=== PATIENT | male | born 1950 | race Two or more races ===

== ENCOUNTER 2024-08-16 11:22 | Emergency (ER) | payer MEDICARE, MEDICAID, SELFPAY ==
[2024-08-16 11:23] VITALS: BMI 25.0
[2024-08-16 11:39] VITALS: BP 162/94; PULSE 101; RESP 12; TEMP 36.6; O2SAT 98
--- NOTE | 2024-08-16 11:44 | PD.EDALLER ---
ED Allergic Reaction RME/HPI General Chief complaint: Allergic Reaction Stated complaint: FACIAL SWELLING S/P NEW MEDS Time Seen by Provider: 08/16/24 11:32 Arrival date/time: 08/16/24 11:22 RME / HPI RME / HPI narrative: 73-year-old male patient with significant history of hypertension, was brought in by family for evaluation regarding swelling of the mouth. Patient woke up this morning as swelling of the mouth, lips, and feels like tongue is also swollen. Patient took his first dose of lisinopril last night. Patient denies any difficulty swallowing denies any shortness of breath denies any other complaints no medication was taken prior to arrival. Related Data Allergies Allergy/AdvReac Type Severity Reaction Status Date / Time lisinopril Allergy Severe Swelling Verified 08/16/24 11:26 of Lip/Tongue/Throat Review of Systems Review of Systems Narrative Review of Systems: Review of system reviewed and within normal limits except mentioned in HPI ED Exam Narrative Physical exam: VITAL SIGNS: Reviewed. GENERAL APPEARANCE: Alert and interactive, follows commands, no acute distress, HEAD AND FACE: Non-traumatic. ENT: PERRL, pink conjunctivitis, eyelid no trauma, Mucous membrane moist. Lips are not swollen, tongue is not swollen, no rashes no redness NECK: Supple, nontender, no nuchal rigidity. CHEST: No tenderness, no crepitus, no paradoxical movement, no retractions. LUNGS: Clear, well ventilated, symmetric, no rales, no wheezing, no ronchi, no stridor, good breath sounds bilaterally. HEART: Regular rate, regular rhythm, no murmur, no gallops. ABDOMEN: Soft, positive bowel sounds, nondistended, no guarding, nontender, no rebound, no masses, RECTAL: Deferred. GENITAL: Deferred. NEUROLOGICAL: Gross motor function intact sensory function intact, Appropriate for age. MUSCULOSKELETAL: low back nontender, full range of motion. EXTREMITIES: Nontender, full range of motion. SKIN: Color pink, dry, no rash, no lacerations, no abrasions, no contusions. LYMPHATICS: Deferred. Course Quality Measures none Orders Category Date Time Status Dexamethasone Inj [Decadron Inj] Med 08/16/24 11:42 Discontinued 10 mg IV X1 ONE DiphenhydrAMINE INJ [Benadryl Inj] Med 08/16/24 11:42 Discontinued 25 mg IVP X1 ONE EPINEPHrine Inj [Adrenalin Inj] Med 08/16/24 11:42 Discontinued 0.3 mg IM X1 ONE Famotidine Inj [Pepcid Inj] Med 08/16/24 11:42 Discontinued 20 mg IVP X1 ONE Sodium Chloride 0.9% 1000 ml [Ns] 1,000 ml Med 08/16/24 11:43 Discontinued IV 999 mls/hr Vital Signs Vital signs: Vital Signs Temperature 98 F 08/16/24 11:39 Pulse Rate 101 H 08/16/24 11:39 Respiratory Rate 12 08/16/24 11:39 Blood Pressure 162/94 H 08/16/24 11:39 Pulse Oximetry (%) 98 08/16/24 11:39 Oxygen Delivery Method Room Air 08/16/24 11:39 Allergic Reaction MDM Narrative MDM Narrative:: 73-year-old male patient with significant history of hypertension, was brought in by family for evaluation regarding swelling of the mouth. Patient woke up this morning as swelling of the mouth, lips, and feels like tongue is also swollen. Patient took his first dose of lisinopril last night. Patient denies any difficulty swallowing denies any shortness of breath denies any other complaints no medication was taken prior to arrival. Patient received IV fluids, Benadryl Pepcid epinephrine and Decadron. On reevaluation patient's symptoms is completely gone. Patient was advised to stop taking lisinopril and asked the PCP for new blood pressure medication. Patient appears nontoxic and hemodynamically stable. Patient discharged home and instructed to follow-up with primary care provider in 24 to 48 hours. Instructed to return to the emergency department immediately if worsening of symptoms Patient data External records reviewed:: None Clinical information provided by:: none Social determinants that could affect healthcare access:: none Patient has the following chronic illnesses:: Hypertension How is presenting disease/condition affected by chronic disease/condition?: exacerbated by Evaluation data The following diagnostics were reviewed and interpreted by me:: other (specify) (None) Lab and/or radiology exams considered but not ordered:: None Interpretation Summary: None Medications / Prescriptions Medications or Prescriptions considered but not ordered:: None Medication administrations:: Medication Administration History Discontinued Medications Dexamethasone Sodium Phosphate (Dexamethasone Sod Phos Inj 10 Mg/Ml Vial) 10 mg IV X1 ONE Stop: 08/16/24 11:43 Last Admin: 08/16/24 12:01 Dose: 10 mg Documented By: PEDRO PABLO Diphenhydramine HCl (Diphenhydramine Inj 50 Mg/Ml Vial) 25 mg IVP X1 ONE Stop: 08/16/24 11:43 Last Admin: 08/16/24 12:00 Dose: 25 mg Documented By: PEDRO PABLO Epinephrine HCl (Epinephrine Inj 1 Mg/Ml Amp) 0.3 mg IM X1 ONE Stop: 08/16/24 11:43 Last Admin: 08/16/24 11:57 Dose: 0.3 mg Documented By: PEDRO PABLO Famotidine (Famotidine Inj 10 Mg/Ml Vial 2 Ml) 20 mg IVP X1 ONE Stop: 08/16/24 11:43 Last Admin: 08/16/24 12:01 Dose: 20 mg Documented By: PEDRO PABLO Sodium Chloride (Ns) 1,000 mls @ 999 mls/hr IV .Q1H1M ONE Stop: 08/16/24 12:43 Last Infusion: 08/16/24 13:12 Dose: Infused Documented By: PEDRO PABLO Admin: 08/16/24 12:02 Dose: 999 mls/hr Documented By: PEDRO PABLO IV fluids Pepcid epinephrine Benadryl and Decadron Consultations Consultation(s) initiated? (list below): No Diagnosis Differential Diagnosis allergic reaction: allergic reaction and angioedema Most likely diagnosis given after review of the tests above:: Angioedema, drug allergic reaction Admission Indicated Admission indicated?: not indicated Explain why admission is indicated or not indicated:: Stable Admission Request Was there a request for admission?: No Disposition Plan Disposition Plan: Discharge Discharge Attestation Discharge Attestation: The patient and all family members were given an opportunity to ask questions and understood the discharge instructions. Discharge instructions specifically effects, indications for sooner follow up or return to the emergency department, and the expected course of current diagnosis. Patient condition: Stable Discharge Plan Plan Patient Disposition: HOME (Self Care) Discharge Disposition comment: Stable Prescriptions/Referrals Referrals: Amy Mandel PA-C [Primary Care Provider] - In 1 week Problem List Clinical Impression: Angioedema, Adverse reaction to drug Patient/Caregiver Discharge Instructions Discharge Activity: activity as tolerated Education Materials: ED Angioedema Additional Instructions: Thank you for the opportunity for serving you today. You are stable for discharged . You are advised to: Follow-up with your PCP in 1 to 2 days Return to ED for worsening of symptoms Increase oral fluids Please stop taking your lisinopril and call your PCP for your blood pressure issues. Print Language: Montenegrin Stand Alone Forms: Suzi Award Info., Patient Portal Info Letter PA/OFFICE MACHINE INSPECTOR Supervising Physician PA/OFFICE MACHINE INSPECTOR Supervising Physician: MD Preston
[2024-08-16 11:57] VITALS: BP 162/94; PULSE 90
[2024-08-16] MEDS: EPINEPHrine INJ 1 MG/ML AMP 0.3 MG IM (11:57)
[2024-08-16] MEDS: DiphenhydrAMINE INJ 50 MG/ML VIAL 25 MG IVP (12:00)
[2024-08-16] MEDS: FAMOTIDINE INJ 10 MG/ML VIAL 2 ML 20 MG IVP (12:01)
[2024-08-16] MEDS: DEXAMETHASONE SOD PHOS INJ 10 MG/ML VIAL IV (12:01)
[2024-08-16] MEDS: SODIUM CHLORIDE 0.9% 1000 ML 1,000 ML 999 ML IV (12:02)
--- NOTE | 2024-08-16 12:06 | PC.NURSE ---
pt came with son for facial swelling after taking lisinopril
--- NOTE | 2024-08-16 12:07 | PC.NURSE ---
pt denies sob
[2024-08-16 14:03] VITALS: BP 180/86; PULSE 88
[2024-08-16] MEDS: cloNIDine HCL 0.1 MG TABLET PO (14:03)
[2024-08-16 14:05] VITALS: BP 172/76; PULSE 88; RESP 16; TEMP 36.7; O2SAT 99
== END 2024-08-16 14:05 | disposition home or self-care (01) ==
PROVIDERS: Emergency Provider Family Medicine; PCP Physician Assistant Medical
DX: T78.3XXA Angioneurotic edema, initial encounter (principal); T46.4X5A Adverse effect of angiotensin-converting-enzyme inhibitors, initial encounter
CPT/HCPCS: 96361; 96374; 96375; 99284; J0171; J1100; J1200; J3490; J7030; A9270